=== PATIENT | male | born 1965 | race Caucasian/White ===

== ENCOUNTER 2017-06-14 04:30 | Emergency (ER) | payer BC ==
[~2017-06-14] VITALS: Ht 177.8 cm; Wt 100.7 kg
[2017-06-14] MEDS: fentaNYL PF VIAL 100 MCG/2 ML VIAL IV PRN ×2 (06:34→06:51)
--- NOTE | 2017-06-14 06:58 | PHYS DOC ---
Past Medical History Past Medical History: Pneumonia Past Surgical History: No Surgical History Alcohol Use: None Drug Use: None Adult General Chief Complaint Chief Complaint: LOWEREXTREMITY INJURY HPI HPI 52-year-old male presenting to the emergency department today after slipping on water when he injured the lateral portion of his left ankle. He has pain that is sharp moderate intermittent worse with walking and without alleviating factors. He reports being on antibiotics for recent pneumonia diagnosis. He denies any knee pain or hip pain proximally. He denies any pain in his foot. Review of systems is negative for chest pain shortness of breath back pain neck pain head injury loss of consciousness numbness weakness tingling. All other review of systems is negative unless otherwise noted in history of present illness. ED course: 52-year-old male presenting to the emergency department today with left ankle pain found to have a ankle fracture on x-ray. I discussed the case with Dr. goodwin our orthopedic surgeon who recommended a stirrup splint, crutches nonweightbearing to follow-up with him in 5-7 days. The patient was given IV fentanyl for pain control and then discharged home with oral pain medications. The patient was then discharged home in stable condition to follow up with their primary care physician over the next 2-3 days. They were to return if their symptoms worsened or if they were concerned for any reason. Face -to-face discharge instructions and return precautions were given. Patient's questions were answered to their satisfaction. Patient is comfortable plan. Review of Systems Review of Systems SEE ABOVE. Current Medications Current Medications Current Medications Medications (Trade) Dose Ordered Sig/[facility] Start Time Stop Time Status Last Admin Dose Admin Fentanyl Citrate (Fentanyl 2ml Vial) 50 mcg PRN Q30MIN PRN 06/14/17 06:15 06/14/17 06:51 50 MCG Allergies Allergies Allergies Coded Allergies Type Severity Reaction Last Updated Verified No Known Drug Allergies 06/14/17 No Physical Exam Physical Exam SEE ABOVE Constitutional: Well developed, well nourished, no acute distress, non-toxic appearance. [] HENT: Normocephalic, atraumatic, bilateral external ears normal, oropharynx moist, no oral exudates, nose normal. [] Eyes: PERRLA, EOMI, conjunctiva normal, no discharge. [] Neck: Normal range of motion, no tenderness, supple, no stridor. [] Cardiovascular:Heart rate regular rhythm, no murmur [] Lungs & Thorax: Bilateral breath sounds clear to auscultation [] Abdomen: Bowel sounds normal, soft, no tenderness, no masses, no pulsatile masses. [] Skin: Warm, dry, no erythema, no rash. [] Back: No tenderness, no CVA tenderness. [] Extremities: No tenderness, no cyanosis, no clubbing, ROM intact, no edema. [] Neurologic: Alert and oriented X 3, normal motor function, normal sensory function, no focal deficits noted. [] Psychologic: Affect normal, judgement normal, mood normal. [] Current Patient Data Vital Signs Vital Signs Date Time Temp Pulse Resp B/P (MAP) Pulse Ox O2 Delivery O2 Flow Rate FiO2 06/14/17 06:51 18 98 Room Air 06/14/17 04:30 98.7 96 98.7 EKG EKG [] Radiology/Procedures Radiology/Procedures []X-rays were obtained of the left tibia fibula, ankle, and foot. Reviewed by myself. Patient has a left fibular fracture. Course & Med Decision Making Course & Med Decision Making Pertinent Labs and Imaging studies reviewed. (See chart for details) [] Dragon Disclaimer Dragon Disclaimer This electronic medical record was generated, in whole or in part, using a voice recognition dictation system. Departure Departure Impression: Primary Impression: Ankle fracture, left Additional Impression: Ankle fracture, lateral malleolus, closed Disposition: 01 HOME, SELF-CARE Condition: STABLE Referrals: NO PCP (PCP) MICHELLE GOODWIN II, MD Patient Instructions: Ankle Fracture Additional Instructions: Thank you for allowing us to participate in your care today. Followup with Dr. Goodwin in 5-7 days. Do not put weight on the left leg, use crutches. Call your Primary Doctor tomorrow and inform them of your visit today. If you do not have a primary care provider you can ask for a list of our primary care providers. Return to the emergency department you have any new or concerning findings. This should be evaluated by the primary care physician and any necessary consulting services for continued management within a few days after discharge. Return to emergency room if you have any new or concerning symptoms including but not limited to fever, chills, nausea, vomiting, intractable pain, any new rashes, chest pain, shortness of air, uncontrolled bleeding, difficulty breathing, and/or vision loss. You may have been prescribed medication that can change in your level of thinking and ability to operate machinery. These medications include hydrocodone and Ativan. Also, Benadryl has been known to do this as well. Be sure to check with your pharmacist and ask if the medications you've prescribed can affect your level of consciousness. I recommend not operating heavy machinery or driving while on medication such as these. Problem Qualifiers HECTOR JADE MD Jun 14, 2017 06:58
[2017-06-14] MEDS ORDERED: HYDR-2758 PO (06:59)
--- NOTE | 2017-06-14 07:05 | RAD ---
Indication: Fall and left foot pain. Time of exam 0524 hours. 3 views of the left foot were obtained. There are significant degenerative changes at the first MTP joint. Joint space narrowing and marginal spurring is present. The metatarsals appear intact. The phalanges appear intact. The midfoot and hindfoot are unremarkable. Impression: Degenerative changes. No acute bony abnormality is detected.
--- NOTE | 2017-06-14 07:06 | RAD ---
Indication: Fall and ankle pain. Time of exam 0523 hours. 3 views of the left ankle demonstrate an obliquely oriented fracture through the distal fibula in the supra syndesmotic location. No displacement or angulation is seen. Ankle mortise is maintained. The talar dome is smooth. Impression: Obliquely oriented suprasyndesmotic distal fibular fracture.
--- NOTE | 2017-06-14 07:07 | RAD ---
Indication: Fall and left leg pain. Time of exam 0521 hours. 2 views of the tibia and fibula were obtained. Images again demonstrate a fracture involving the distal fibula, obliquely oriented. This is above the syndesmosis. The tibia appears intact. Alignment at the knee and ankle is normal. Impression: Distal fibular fracture.
[2017-06-14 07:10] VITALS: BP 128/77
[2017-06-14] MEDS ORDERED: HYDROcodone/APAP 5/325MG 1 TAB TABLET PO ONE (07:15)
== END 2017-06-14 07:15 | disposition home or self-care (01) ==
LOC: ER 04:30
DX: S82.832A Other fracture of upper and lower end of left fibula, initial encounter for closed fracture (principal); S82.62XA Displaced fracture of lateral malleolus of left fibula, initial encounter for closed fracture; Z87.01 Personal history of pneumonia (recurrent); W18.49XA Other slipping, tripping and stumbling without falling, initial encounter; Y93.89 Activity, other specified; Y92.89 Other specified places as the place of occurrence of the external cause; Y99.8 Other external cause status
CPT/HCPCS: 29515; 73590; 73610; 73630; 96374; 99284; J3010

== ENCOUNTER → 2017-09-19 | Outpatient (CLI) | payer BC | END | disposition home or self-care (01) | LOC: KCIC 08:29 | DX: R05 Cough (principal) | CPT/HCPCS: 71046 ==